=== PATIENT | female | born 1940 | race Caucasian/White ===

== ENCOUNTER → 2024-01-09 12:49 | Outpatient (REF) | payer OTHER, SELFPAY | LOC: RCS 12:49 | PROVIDERS: ATTENDING PHYSICIAN Internal Medicine Interventional Cardiology | DX: I10 Essential (primary) hypertension (principal) | CPT/HCPCS: 93306 ==

== ENCOUNTER 2024-01-22 06:12 | Day surgery (SDC) | payer OTHER, SELFPAY ==
[2024-01-22] VITALS (10 sets, daily range): BP systolic 155–178; BP diastolic 62–88; BMI 15.4
[2024-01-22 07:04] LABS: Hematocrit 36.7 % (37.0-47.0); Hemoglobin 12.6 g/dL (12.0-16.0); Mean Corp Hgb Conc. 34.3 g/dL (33.0-37.0); Mean Corpuscular Hgb 31.2 pg (27.0-31.0); Mean Corpuscular Volume 90.8 fL (81.0-99.0); Mean Platelet Volume 10.4 fL (7.4-10.4); Platelet Count 152 10^3/uL (130-400); Red Blood Cell Count 4.04 10^6/uL (4.20-5.40); Red Cell Dist. Width 12.5 % (11.5-14.5); White Blood Cell Count 6.7 10^3/uL (4.8-10.8)
[2024-01-22] MEDS: NSS 115 ML IV (07:33)
--- NOTE | 2024-01-22 08:05 | ITS.CL.CATH ---
[employer] - Catheterization
Cardiac Catheterization
Procedure Report:
LEFT HEART CATHETERIZATION
Date of Procedure: January 22, 2024
Referring: Tamia Benoit MD, [facility], [facility]
PROCEDURES:
1. Left catheterization, coronary angiogram.
2. Ultrasound-guided access
INDICATION: New LV dysfunction with LVEF of 35 to 40% with hypokinesis of mid-distal anteroseptum and anterior segments and akinesis of mid inferoseptum.
ACCESS: Right radial artery, 6 Kyrgyz sheath, under ultrasound guidance
HEMODYNAMICS : (mmHg)
AO (s/d) : 148/68
LV (s/d) : 143/7
LVEDP : 13
CORONARY FINDINGS
DOMINANCE: Right
LEFT MAIN: The left main artery is a large-caliber vessel which originates to the left circumflex artery, ramus intermedius branch and the left anterior descending artery. There is minimal luminal irregularities.
LEFT ANTERIOR DESCENDING: The left anterior descending artery is a medium caliber moderately tortuous vessel which gives rise to 1 major diagonal branch as it courses through the anterior interventricular groove and wraps around the apex. The LAD
proper has mild diffuse atherosclerotic plaque with diffuse disease in the mid portion of the diagonal up to 70%.
RAMUS INTERMEDIUS: The ramus intermedius branch is a medium caliber vessel with 50% ostial stenosis.
CIRCUMFLEX: The left circumflex artery is a small to medium caliber vessel which gives rise to 1 major obtuse marginal branch with minimal luminal irregularities.
RIGHT CORONARY ARTERY: The right coronary artery is a large-caliber, dominant vessel which gives rise to the right posterior descending artery and the right posterolateral system. There is mild diffuse atherosclerotic plaque.
SEDATION: 51 minutes of procedural sedation was utilized. An independent medical radiation dosimetrist was present to assist with and help manage the patient's level of consciousness and physiologic status.
RADIATION SUMMARY: Fluoro Time (min): 1.9, Dose (mGy): 76.13, DAP (Gy.cm2) : 5.55
Closure Device: Vascular band over right radial artery, 10 cc of air.
CONCLUSIONS
1. Mild to moderate coronary artery disease especially in branch vessels.
2. Normal LVEDP.
RECOMMENDATIONS
1. Optimization of goal-directed medical therapy for recently diagnosed cardiomyopathy.
2. Wean radial band per protocol.
3. Aggressive management of cardiovascular risk factors.
Tamia Benoit MD, FACC, [facility]
[2024-01-22 08:11] LABS: Blood Urea Nitrogen 10 mg/dl (7-17); Calcium 10.1 mg/dl (8.4-10.2); Carbon Dioxide 32 mmol/L (22-30); Chloride 97 mmol/L (98-107); Estimated Creatinine Clearance 38 ml/min; Glucose 107 mg/dl (70-99); Potassium 3.9 mmol/L (3.5-5.1); Sodium 136 mmol/L (135-145); eGFR > 60.00
[2024-01-22] MEDS: NSS 1000 IV (08:59)
== END 2024-01-22 12:30 | disposition home or self-care (01) ==
LOC: CATH 06:12
PROVIDERS: ATTENDING PHYSICIAN Internal Medicine Interventional Cardiology; FAMILY PHYSICIAN Internal Medicine
DX: I25.10 Atherosclerotic heart disease of native coronary artery without angina pectoris (principal); I44.7 Left bundle-branch block, unspecified; I10 Essential (primary) hypertension; E78.00 Pure hypercholesterolemia, unspecified; E03.9 Hypothyroidism, unspecified; Z79.82 Long term (current) use of aspirin; Z79.84 Long term (current) use of oral hypoglycemic drugs
CPT/HCPCS: 99152; 99153; C1894; 80048; 85027; 93005; 93458; Q9967

== ENCOUNTER → 2024-01-27 16:19 | Outpatient (REF) | payer OTHER, SELFPAY | LOC: RAD 16:19 | PROVIDERS: ATTENDING PHYSICIAN Nurse Practitioner; FAMILY PHYSICIAN Internal Medicine | DX: R22.31 Localized swelling, mass and lump, right upper limb (principal) | CPT/HCPCS: 93930 ==

== ENCOUNTER 2024-03-11 09:15 | Inpatient (IN) | payer OTHER, SELFPAY ==
--- NOTE | 2024-03-10 13:41 | PTCARENOTE ---
Dr Gomez made aware pt took Shaw this AM. No further action requested.
[2024-03-11] VITALS (19 sets, daily range): BP systolic 92–146; BP diastolic 55–96; BMI 15.4
[2024-03-11] MEDS: TYLENOL 650 MG PO ×2 (10:09→20:15)
[2024-03-11] MEDS: CELEBREX 200 MG PO (10:09)
[2024-03-11] MEDS: BACTROBAN NASAL 1 GRAM NASAL (10:09)
[2024-03-11 11:26] LABS: Glycohemoglobin (HgbA1c) 5.6 % (4.0-5.6)
[2024-03-11] MEDS: ROXICODONE 5 MG PO ×2 (14:04→22:20)
--- NOTE | 2024-03-11 14:14 | W.PN.ORTHO ---
Today's Communication / Plan
-
D/c when clinically stable.
Assessment
.
Dressing:
Clean, dry and intact.
Assessment:
Closed fracture of neck of R femur s/p Jimenez DANIELLE w/ Dr Gallardo 03/11/24
- Sustained after mechanical fall; will assess Vit D given fx
DVT prophylaxis - ASA, b/l venous foot pumps
HTN - + parameters - monitor BP
CAD, nonobstructive on cath 01/2024 - continue ASA but at 325 mg dosing x4 weeks for blood clot prevention
Ischemic cardiomyopathy, reduced EF - reduce hourly IVF rate to prevent fluid overload
Iron deficiency anemia - non-invasive hgb in AM
- Continue PO iron
HLD
LBBB
Mild valvular disease
MVP
OA s/p L TKA, 2007, and R TKA 2009
Hypothyroidism
L breast CA, 1999, s/p mastectomy/chemo/XRT
Melanoma
Anxiety
Depression
Plan
.
Surgery / Date: Jimenez sanchez/ Dr Gallardo 03/11/24
DVT Prophylaxis: Aspirin
Activity:
Out of bed.
PT/OT
Subjective
.
.:
Patient resting comfortably in PACU.
R hip pain minimal and well tolerated.
Denies any new significant complaints.
--- NOTE | 2024-03-11 16:50 | PTCARENOTE ---
Pt received from the PACU via bed. Transport was w/o incident. Pt is AAOx3, HRR, lungs are clear, resp. easy. VSS, Pt is afebrile. Pt with primaseal dressing to right hip w/ scant amt. of bloody drainage noted. Pt instructed on plan of care. Pt
verbalized understanding of instructions. Call yip is within reach.
[2024-03-11] MEDS: FEOSOL PO (17:00)
[2024-03-11] MEDS: FARXIGA PO (17:13)
[2024-03-11] MEDS: TYLENOL PO (17:14)
[2024-03-11] MEDS: ANCEF 5 IV (19:36)
[2024-03-11] MEDS: ASPIRIN 325 MG PO (19:37)
[2024-03-11] MEDS: BACTROBAN 2% OINTMENT 1 APPLIC NASAL (20:15)
[2024-03-11] MEDS: DECADRON 4 MG PO (20:15)
[2024-03-11] MEDS: COREG PO (20:16)
[2024-03-11] MEDS: SENOKOT 17.2 MG PO (20:18)
[2024-03-11] MEDS: COLACE 100 MG PO (20:18)
[2024-03-11] MEDS: LIPITOR 40 MG PO (22:19)
[2024-03-11] MEDS: DESYREL 50 MG PO (22:19)
[2024-03-11] MEDS: PEPCID 20 MG PO (22:19)
[2024-03-11] MEDS: REMERON 15 MG PO (22:19)
[2024-03-11] MEDS: ATIVAN 0.5 MG PO (22:58)
[2024-03-12] VITALS (7 sets, daily range): BP systolic 99–143; BP diastolic 58–73; PULSE 62–68; O2SAT 96; BMI 16.1
[2024-03-12] MEDS: TYLENOL PO ×2 (00:50→04:57)
[2024-03-12] MEDS: ANCEF 5 IV (02:35)
[2024-03-12 06:11] LABS: Hematocrit 24.4 % (37.0-47.0); Hemoglobin 8.4 g/dL (12.0-16.0)
[2024-03-12 06:48] LABS: Vitamin D, 25-OH*** 43.7 ng/mL (30-80)
[2024-03-12] MEDS: ROXICODONE 5 MG PO ×2 (08:25→13:07)
[2024-03-12] MEDS: ASPIRIN 325 MG PO (08:26)
[2024-03-12] MEDS: TYLENOL 650 MG PO ×4 (08:26→19:48)
[2024-03-12] MEDS: PAXIL 40 MG PO (08:26)
[2024-03-12] MEDS: SENOKOT 17.2 MG PO ×2 (08:26→19:45)
[2024-03-12] MEDS: DECADRON 4 MG PO ×2 (08:26→19:45)
[2024-03-12] MEDS: FARXIGA 10 MG PO (08:26)
[2024-03-12] MEDS: COLACE 100 MG PO ×2 (08:26→19:44)
[2024-03-12] MEDS: SYNTHROID 88 MCG PO (08:27)
[2024-03-12] MEDS: BACTROBAN 2% OINTMENT 1 APPLIC NASAL ×2 (08:27→19:44)
[2024-03-12] MEDS: COREG 12.5 MG PO ×2 (08:27→19:45)
[2024-03-12] MEDS: TORADOL 30 MG IV (10:12)
[2024-03-12] MEDS: LIDOCAINE 4% PATCH 2 PATCH TOPICAL (10:12)
--- NOTE | 2024-03-12 10:25 | CM ---
Met with pt at bedside
Pt reports she lives alone in an apartment; no steps to enter, elevator access
Prior to fall was independent, did own shopping, cleaning. Recently ambulating with rolling walker
DME - rolling walker, raised toilet seat
SNF - no past hx
HH - has had in past - unsure of agency
Son to transport home
PCP - [facility] - sees Laura
Pharm - [facility]
Pt reports she does not want to go to SNF - reports has had bad experience in past with son/. Prefers to go home with VN. Will not have transport for outpatient PT. No preference for VN if indicated
Does not have family support
PT/OT evals pending
Plan - anticipate home with VN vs SNF - pend evals from PT/OT
--- NOTE | 2024-03-12 10:30 | W.PN.ORTHO ---
Today's Communication / Plan
-
Await PT and OT recs. Pt hopeful for d/c home w/ home care.
D/c possible for later today if remaining clinically stable.
Assessment
.
Distal Motor Intact: Yes
Dressing:
Clean, dry and intact.
Assessment:
Closed fracture of neck of R femur s/p Jimenez sanchez/ Dr Gallardo 03/11/24
- Sustained after mechanical fall; Vit D WNL
DVT prophylaxis - ASA, b/l venous foot pumps
Post-surgical hip pain - will add Meloxicam, lidoderm patches
HTN - + parameters - BPs stabilized
CAD, nonobstructive on cath 01/2024 - continue ASA but at 325 mg dosing x4 weeks for blood clot prevention
Ischemic cardiomyopathy, reduced EF - reduced hourly IVF rate to prevent fluid overload
- No s/sx of acute HF
Iron deficiency anemia - hgb 12.6 pre-op -> 8.4 POD 1
- ? hemodilutional result given IVF overnight
- Pt notably asymptomatic, hemodynamically stable. Denies overt bleeding.
- Continue PO iron
- Trend H&H while inpatient
- Prefer not to transfuse unless <7, symptomatic given infection risk
HLD
LBBB
Mild valvular disease
MVP
OA s/p L TKA, 2007, and R TKA 2009
Hypothyroidism
L breast CA, 1999, s/p mastectomy/chemo/XRT
Melanoma
Anxiety
Depression
Plan
.
Surgery / Date: Jimenez sanchez/ Dr Gallardo 03/11/24
DVT Prophylaxis: Aspirin
Activity:
Out of bed.
PT/OT
Discharge Plan: Home w/ VN
Subjective
.
.:
Patient examined resting in bed.
Appears comfortable but reports 5/10 hip pain at rest.
Denies any other new significant complaints.
Vital Signs and Labs
.
Vital Signs and Labs:
Lab Results
03/12/24 04:34
Temp Pulse Resp BP Pulse Ox
97.9 F 66 16 125/59 96
03/12/24 07:05 03/12/24 08:27 03/12/24 07:05 03/12/24 08:27 03/12/24 08:00
Physical Exam
-
HEENT: No pallor, cyanosis, or jaundice. Throat clear.
NECK: Supple. No JVD.
RESPIRATORY: Lungs clear to auscultation.
CVS: S1, S2 normal. RRR.�
ABDOMEN: Soft, non-tender. No distension.
EXTREMITIES: Strength equal, no calf pain with palpation/dorsiflexion. Calves soft.
AGENCY SALES REPRESENTATIVE: AOx3. No focal deficits. triage technician grossly intact
--- NOTE | 2024-03-12 12:59 | W.PN.UPDATE ---
Update Note
Progress Note Update
Pt will greatly benefit from continued therapy while in house.
Given this, will hold on d/c today. Hopeful for d/c tomorrow.
[2024-03-12] MEDS: LIPITOR 40 MG PO (21:30)
[2024-03-12] MEDS: PEPCID 20 MG PO (21:31)
[2024-03-12] MEDS: REMERON 15 MG PO (21:31)
[2024-03-12] MEDS: DESYREL 50 MG PO (21:31)
[2024-03-12] MEDS: ATIVAN 0.5 MG PO (21:31)
[2024-03-13] MEDS: TYLENOL PO ×2 (00:10→04:41)
[2024-03-13 06:00] VITALS: BMI 15.6
[2024-03-13 06:23] LABS: Hematocrit 24.3 % (37.0-47.0); Hemoglobin 8.6 g/dL (12.0-16.0)
[2024-03-13 07:56] VITALS: BP 114/61
[2024-03-13] MEDS: SYNTHROID 88 MCG PO (08:12)
[2024-03-13] MEDS: PAXIL 40 MG PO (08:12)
[2024-03-13] MEDS: FARXIGA 10 MG PO (08:12)
[2024-03-13] MEDS: COREG 12.5 MG PO (08:12)
[2024-03-13] MEDS: MOBIC 7.5 MG PO (08:13)
[2024-03-13] MEDS: TYLENOL 650 MG PO ×2 (08:13→12:30)
[2024-03-13] MEDS: COLACE 100 MG PO (08:13)
[2024-03-13] MEDS: ASPIRIN 325 MG PO (08:13)
[2024-03-13] MEDS: DECADRON 4 MG PO (08:13)
[2024-03-13] MEDS: LIDOCAINE 4% PATCH 2 PATCH TOPICAL (08:14)
[2024-03-13] MEDS: SENOKOT 17.2 MG PO (08:14)
[2024-03-13] MEDS: ROXICODONE 5 MG PO ×2 (08:20→12:32)
--- NOTE | 2024-03-13 09:24 | W.PN.ORTHO ---
Today's Communication / Plan
-
Await further PT and OT recs.
D/c later today if remaining clinically stable.
Assessment
.
Dressing:
Scant incisional bleeding. Dressing otherwise C/D/I.
Assessment:
Closed fracture of neck of R femur s/p R SHASHI w/ Dr Gallardo 03/11/24
- Sustained after mechanical fall; Vit D WNL
DVT prophylaxis - ASA, b/l venous foot pumps
Post-surgical hip pain - added Meloxicam, lidoderm patches - pain better tolerated by POD 2
HTN - + parameters - BPs stabilized
CAD, nonobstructive on cath 01/2024 - continue ASA but at 325 mg dosing x4 weeks for blood clot prevention
Ischemic cardiomyopathy, reduced EF - reduced hourly IVF rate to prevent fluid overload
- No s/sx of acute HF. Daily weight stable.
Iron deficiency anemia - hgb 12.6 pre-op -> 8.4 -> 8.6 POD 2
- Pt notably asymptomatic, hemodynamically stable. Denies overt bleeding.
- Continue PO iron. Would advise daily iron if tolerated
- Prefer not to transfuse unless <7, symptomatic given infection risk
HLD
LBBB
Mild valvular disease
MVP
OA s/p L TKA, 2007, and R TKA 2009
Hypothyroidism
L breast CA, 1999, s/p mastectomy/chemo/XRT
Melanoma
Anxiety
Depression
Plan
.
Surgery / Date: Jimenez DANIELLE w/ Dr Gallardo 03/11/24
DVT Prophylaxis: Aspirin
Activity:
Out of bed.
PT/OT
Discharge Plan: Home w/ VN
Subjective
.
.:
Patient resting comfortably in her chair.
R hip pain 'better' w/ added Meloxicam, Lidoderm patches from yesterday.
Denies any new significant complaints.
Eager for potential d/c today.
Vital Signs and Labs
.
Vital Signs and Labs:
Lab Results
03/13/24 05:44
Temp Pulse Resp BP Pulse Ox
98.1 F 62 16 114/61 96
03/13/24 07:56 03/13/24 08:12 03/13/24 07:56 03/13/24 08:15 03/13/24 07:56
Physical Exam
-
HEENT: No pallor, cyanosis, or jaundice. Throat clear.
NECK: Supple. No JVD.
RESPIRATORY: Lungs clear to auscultation.
CVS: S1, S2 normal. RRR.�
ABDOMEN: Soft, non-tender. No distension.
EXTREMITIES: Strength equal, no calf pain with palpation/dorsiflexion. Calves soft.
LICENSED VETERINARY TECHNICIAN: AOx3. No focal deficits. police inspector grossly intact
[2024-03-13 09:42] VITALS: BP 135/58; BP 98/61; PULSE 72
--- NOTE | 2024-03-13 10:09 | W.DS.TRANS ---
DC Summary - Transit Clerk
-
Discharge Instructions:
Sleep Apnea Risk Low
Discharge Diagnosis/Procedures Closed fracture of neck of R femur s/p R SHASHI w/
Dr Gallardo 03/11/24
Diet Other diet
Additional Diets Diabetic carb controlled x1 week for wound
healing/infection prevention
Activity As tolerated,With Walker
Driving Restrictions Not until seen by your Dr
Bathing Restrictions OK to Shower
Other Services PT,VN
Wound Care Dressing to be removed 1 week post-surgery
Specialty Instructions Weigh Daily
Instructions:
Stand-Alone Forms: Total Hip/Knee Replacement D/C
Changes to Home Medications: Yes
Discharge Medications:
DC Medications w/original date entered in [facility]
levothyroxine 88 mcg tablet 88 mcg PO DAILY 10/12/20
lorazepam 0.5 mg tablet 0.5 mg PO HS 10/12/20
trazodone 50 mg tablet 50 mg PO HS 10/12/20
atorvastatin 40 mg tablet 40 mg PO DAILY 01/22/24
carvedilol 12.5 mg tablet 12.5 mg PO BID 01/22/24
mirtazapine 15 mg tablet 15 mg PO HS 01/22/24
ascorbic acid (vitamin C) 500 mg tablet (Vitamin C) 500 mg PO DAILY 03/10/24
biotin 10,000 mcg chewable tablet (Hair, Skin and Nails (biotin)) 10,000 mcg PO DAILY 03/10/24
dapagliflozin propanediol 10 mg tablet (Farxiga) 10 mg PO DAILY 03/10/24
paroxetine HCl 25 mg tablet,extended release 24 hr 50 mg PO DAILY 03/10/24
acetaminophen 500 mg tablet (Tylenol Extra Strength) 1,000 mg (2 x 500 mg) PO Q6H #30 tabs 03/12/24
aspirin 325 mg tablet 325 mg PO DAILY #30 tabs 03/12/24
dexamethasone 4 mg tablet 4 mg PO Q12H Anti-inflammatory #5 tabs 03/12/24
docusate sodium 100 mg capsule 100 mg PO BID #30 caps 10/31/24
famotidine 20 mg tablet 20 mg PO HS #30 tabs 03/12/24
hydralazine 10 mg tablet 10 mg PO DAILYPRN PRN BP OVER 140 #30 tabs 03/12/24
lidocaine 4 % topical patch 2 patch topical DAILY #30 ea 03/12/24
losartan 100 mg tablet 100 mg PO DAILY #1 tab 03/12/24
meloxicam 7.5 mg tablet 7.5 mg PO DAILY #14 tabs 03/12/24
ondansetron HCl 4 mg tablet 4 mg PO Q6H PRN nausea and vomiting #30 tabs 03/12/24
oxycodone 5 mg tablet 5 - 10 mg (1 - 2 x 5 mg) PO Q6H PRN moderate-severe pain #30 tabs 03/12/24
sennosides 8.6 mg tablet (Senna Laxative) 17.2 mg (2 x 8.6 mg) PO BID #30 tabs 03/12/24
spironolactone 25 mg tablet (Aldactone) 25 mg PO DAILY #90 tabs 03/12/24
ferrous sulfate 325 mg (65 mg iron) tablet (iron) 325 mg PO DAILY #1 tab 03/13/24
Home Medication Changes
acetaminophen 500 mg tablet (Tylenol Extra Strength) 1,000 mg (2 x 500 mg) PO Q6H #30 tabs 03/12/24
aspirin 325 mg tablet 325 mg PO DAILY #30 tabs 03/12/24
dexamethasone 4 mg tablet 4 mg PO Q12H Anti-inflammatory #5 tabs 03/12/24
docusate sodium 100 mg capsule 100 mg PO BID #30 caps 03/12/24
famotidine 20 mg tablet 20 mg PO HS #30 tabs 03/12/24
lidocaine 4 % topical patch 2 patch topical DAILY #30 ea 03/12/24
meloxicam 7.5 mg tablet 7.5 mg PO DAILY #14 tabs 03/12/24
ondansetron HCl 4 mg tablet 4 mg PO Q6H PRN nausea and vomiting #30 tabs 03/12/24
oxycodone 5 mg tablet 5 - 10 mg (1 - 2 x 5 mg) PO Q6H PRN moderate-severe pain #30 tabs 03/12/24
sennosides 8.6 mg tablet (Senna Laxative) 17.2 mg (2 x 8.6 mg) PO BID #30 tabs 03/12/24
ferrous sulfate 325 mg (65 mg iron) tablet (iron) 325 mg PO DAILY #1 tab 03/13/24
Pending Results: No
--- NOTE | 2024-03-13 10:58 | CM ---
Met with pt today
PT/OT recs - HH - discussed with pt - no preference
TT sent to [facility] for home services
Has ride home when discharged - son
Discussed IMM
Plan [facility]
--- NOTE | 2024-03-13 11:39 | VNURNOTE ---
Home Health Liaison met with patient at bedside to discuss [facility] nurse/therapy, visits, schedule and homebound status. Patient is agreeable and understands that visits at home will be 2-3 x per week to assess and teach medical management.
[facility] brochure provided with contact information. Patient is aware that [facility] will contact them for start of care in 1-2 days after discharge from .
[facility] referral completed in Care Port.
[2024-03-13 12:22] VITALS: BP 118/70; PULSE 62; O2SAT 99
[2024-03-13] MEDS: FEOSOL 325 MG PO (12:30)
[2024-03-13] MEDS: FLUAD (65 yr+) 2024-2025 FORMULA 0.5 ML IM (12:33)
== END 2024-03-13 14:47 | disposition home health service (06) | DRG 522 ==
LOC: 2 SOUTH 09:15
PROVIDERS: Physician Assistant; ADMITTING PHYSICIAN Orthopaedic Surgery
PROC: 0SR903Z Replacement of Right Hip Joint with Ceramic Synthetic Substitute, Open Approach (ICD-10-PCS; 2024-03-11)
DX: S72.001A Fracture of unspecified part of neck of right femur, initial encounter for closed fracture (principal); D62 Acute posthemorrhagic anemia; F32.A Depression, unspecified; E03.9 Hypothyroidism, unspecified; I10 Essential (primary) hypertension; D50.9 Iron deficiency anemia, unspecified; I08.1 Rheumatic disorders of both mitral and tricuspid valves; E78.5 Hyperlipidemia, unspecified; I44.7 Left bundle-branch block, unspecified; F41.9 Anxiety disorder, unspecified; I25.10 Atherosclerotic heart disease of native coronary artery without angina pectoris; I25.5 Ischemic cardiomyopathy; W19.XXXA Unspecified fall, initial encounter; Z79.82 Long term (current) use of aspirin; Z79.890 Hormone replacement therapy; Z79.899 Other long term (current) drug therapy; Z85.3 Personal history of malignant neoplasm of breast; Z85.820 Personal history of malignant melanoma of skin; Z96.653 Presence of artificial knee joint, bilateral; Z82.49 Family history of ischemic heart disease and other diseases of the circulatory system
CPT/HCPCS: 73502; 82306; 83036; 85014; 85018; 87070; 90662; 97110; 97162; 97167; 97530; 97535; C1713; C1776; G0008

== ENCOUNTER → 2024-07-07 14:52 | Outpatient (REF) | payer OTHER, SELFPAY | LOC: RCS 14:52 | PROVIDERS: ATTENDING PHYSICIAN Physician Assistant; FAMILY PHYSICIAN Internal Medicine | DX: I42.9 Cardiomyopathy, unspecified (principal) | CPT/HCPCS: 93306 ==

== ENCOUNTER 2024-08-06 16:24 | Emergency (ER) | payer OTHER, SELFPAY ==
[2024-08-06 16:27] VITALS: BP 175/92
[2024-08-06 17:34] VITALS: BMI 15.6
--- NOTE | 2024-08-06 17:45 | ED.GENMED ---
History of Present Illness
General
Chief Complaint: Fall
Source: patient and family
Exam Limitations: none
Time Seen by Provider: 08/06/24 17:19
Nursing documentation reviewed up to this point in time: agreed with
History of Present Illness
History of Present Illness:
Patient is an 84-year-old female presenting to the emergency department after mechanical fall tonight with head strike. Patient reports that she was walking in her driveway after finishing PT when she lost her footing and fell forward striking the
left side of her face on what she describes as a 'wooden block '. She also struck her left hip on the ground as well. Patient was able to get up and has been able to ambulate with some pain since. She denies any loss of consciousness.
Patient presents with pain around laceration on left cheek as well as mild pain in her left hip. Patient denies any neck or back pain. No numbness/tingling in lower extremities. No vomiting, double vision/blurry vision, dizziness/lightheadedness,
ataxia. She denies any chest pain, shortness of breath, or abdominal pain.
Of note�patient did have a right hip replacement a few months ago and states she has had somewhat difficult gait since. She denies any preceding chest pain, shortness of breath, lightheadedness/dizziness prior to fall today and states that there
was definitely a mechanical fall.
Patient is not on any blood thinners. She is unsure when her last tetanus shot was.
Past History
Past History
ED Past Medical History: HTN, Hypercholesterolemia, Hypothyroidism, Psychiatric (a/d) and Other (anemia)
Social History
Tobacco: Non-smoker
Living: alone
Review of Systems
Review of Systems
Allergies reviewed?: Yes
All Other Systems: ROS reviewed and negative except as documented in HPI and ROS
Phy Exam
Physical Exam
Physical Exam:
GENERAL: No acute distress
HEENT: Approximately 2 cm laceration on the left lateral zygoma with surrounding abrasion, extraocular muscles intact, sclera clear bilaterally, no signs of entrapment, dentition intact, no tenderness at TMJ, no trismus no other obvious trauma
NECK: no midline tenderness, normal range of motion, no other obvious trauma
BACK: no midline tenderness, no other obvious trauma,
CHEST: no tenderness, no flail segment, no subcutaneous emphysema, no other obvious trauma
LUNGS: clear to auscultation bilaterally
CARDIOVASCULAR: regular rate and rhythm
ABDOMEN: soft, non-tender, no other obvious trauma
PELVIS: stable, no obvious injury
EXTREMITIES: Hematoma to left hip with excellent range of motion of the left hip both with internal/external rotation with very minimal discomfort. No pain in left knee or left ankle with excellent range of motion. RLE, RUE, and LUE atraumatic and
nontender with full range of motion, distal pulses intact, sensation in bilateral lower extremities intact
NEUROLOGIC: awake, alert x 3, no focal deficits
Course
Orders/Labs/Results
Orders:
Orders
08/06/24 17:31
Cervical Spine wo Contrast CT [CT Cervical Spine W/o Iv Contr] Urgent
Comment:
Reason For Exam: fall
Facial Bones wo Contrast CT [CT Facial Bones W/o Iv Contras] Urgent
Comment:
Reason For Exam: fall
Acetaminophen [Tylenol] 650 mg PO NOW STA
08/06/24 17:32
CT Head W/o Iv Contrast Urgent
Comment:
Reason For Exam: fall
08/06/24 17:34
Tetanus/Diphth/Acelpertussis [Adacel] 0.5 ml IM .ONCE ONE
08/06/24 18:28
Hip, Left 2-3 Views [CR Hip - LT w/wo Pel 2-3 Vw*] Urgent
Comment:
Reason For Exam: fall, left hip pain and contusion
Include a pelvis x-ray?: Yes
08/06/24 20:21
CT Pelvis W/o Iv Contrast Urgent
Comment:
Reason For Exam: trauma, fall onto left hip
Vital Signs
Initial and Last Documented VS:
Initial Vital Signs
Temp Pulse Resp BP Pulse Ox
98.4 F 77 18 175/92 97
08/06/24 16:27 08/06/24 16:27 08/06/24 16:27 08/06/24 16:27 08/06/24 16:27
Last Documented Vital Signs
Temp Pulse Resp BP Pulse Ox
98.4 F 77 18 175/92 97
08/06/24 16:27 08/06/24 16:27 08/06/24 16:27 08/06/24 16:27 08/06/24 16:27
Procedures
Laceration Closure
Left Cheek:
Status of Wound: clean
Size of Wound in cm: 2
Description of Wound Edges: surrounded by abrasion
Preparation: cleaned with saline
Anesthesia: 1% Lidocaine with epi
Revision/Debridement: routine- no revision
Skin Closure Material: 6-0 nylon
Number of sutures: 3
MDM/Problems Addressed
Differential Diagnosis Includes:
Not limited to: Laceration, hematoma, hip fracture, concussion, intracerebral hemorrhage, facial bone fracture, etc.
MDM/Problems Addressed:
84 y.o F presents with laceration to left cheek after mechanical fall and associated head strike. Also with hematoma to left hip. No LOC. Hypertensive, otherwise with stable vital signs. Physical exam as above. Patient arrives A&O x 3 with no focal
neurologic deficits on exam. She does have laceration to left lateral zygoma which will require primary closure. Hematoma to left hip noted otherwise no evidence of other traumatic injuries. Patient not anticoagulated. Will update tetanus and close
laceration. Will obtain imaging to r/o traumatic injuries. Fall does seem to have been mechanical in nature without concern for syncope.
Verbal consent obtained by patient. Wound anesthetized with 1% lido w/ epi and closed with 3 6-0 nylon sutures with excellent approximation of wound edges. Hemostasis obtained although there is surrounding abrasion. Patient tolerated procedure
well. Wound care instructions along with suture removal discussed with patient.
Update: CT head, facial bones, and c-spine without acute traumatic injuries. Multiple incidental findings noted and discussed with patient. She denies any infectious symptoms, cough, or abdominal pain. Patient was provided copies of imaging reports
to f/u with PCP. Ultimately CT of pelvis was obtained secondary to abnormality noted on hip xray - although no evidence of hip fracture on CT. Reassessed hematoma which appears stable in size/appearance and do not feel is rapidly expanding.
Admission to hospital was offered to patient given mild instability on feet s/p recent hip surgery although patient declines and states she is adamant about going home. Patient was able to ambulate w/ walker and bear weight here in ED. Patient will
be discharged home at this point with close return precautions and primary care f/u.
Chronic conditions affecting care:
Hypertension
Acute Exacerbation and/or Progression of Chronic Illness:
Acutely hypertensive
*Radiology
Radiology exam reviewed: preliminary read by ED provider (xray of left hip reviewed by me - no acute fracture) and radiology read reviewed
*Pulse Oximetry
Patient hypoxic: no
*EKG
Interpreted by ED Provider?: NA
*Wrapping Machine Tender Interpretation
Rate: Wrapping Machine Tender- N/A
*Critical Care Note
Total Time (30-74mins, 75-104mins- exclusive of procedures): Not Applicable
ED Attending Note
-
Portions of this chart may have been created with voice recognition software.� Occasional wrong word or��sound alike� substitutions may have occurred due to the inherent limitations of voice recognition software.
Discharge Plan
Departure
Patient Disposition: Home (Routine Discharge)
Date of Disposition: 08/06/24
Time of Disposition: 21:20
Patient with high blood pressure during this ER visit?: Yes
Covid-19: Not Applicable
Discharge Problem:
Fall, Laceration of cheek, right, Hematoma of left hip
Instructions: Wound Care (DC), Head Injury in Adults (DC), Laceration Repair With Stitches (DC), Preventing falls in adults, BLOOD PRESSURE
Prescriptions:
No Action
trazodone 50 MG tablet
50 mg PO HS
levothyroxine 88 MCG tablet
88 mcg PO DAILY
lorazepam 0.5 MG tablet
0.5 mg PO HS
atorvastatin 40 mg Tablet
40 mg PO DAILY
mirtazapine 15 mg Tablet
15 mg PO HS
carvedilol 12.5 mg Tablet
12.5 mg PO BID
paroxetine HCl 25 mg Tablet Extended Release 24 Hr
50 mg PO DAILY
dapagliflozin propanediol [Farxiga] 10 mg Tablet
10 mg PO DAILY
ascorbic acid (vitamin C) [Vitamin C] 500 mg Tablet
500 mg PO DAILY
Hair, Skin and Nails (biotin) 10,000 mcg Tablet,Chewable
10,000 mcg PO DAILY
aspirin 325 mg Tablet
325 mg PO DAILY Qty: 30 0RF
Rx Instructions:
Take daily x4 weeks for blood clot prevention; then resume Aspirin 81 mg daily.
docusate sodium 100 mg Capsule
100 mg PO BID Qty: 30 0RF
dexamethasone 4 mg Tablet
4 mg PO Q12H Qty: 5 0RF
Rx Instructions:
Restart night of discharge. Continue every 12 hours until finished.
Take with food.
lidocaine 4 % Adhesive Patch,Medicated
2 patch topical DAILY Qty: 30 0RF
Rx Instructions:
Over the counter. 12 hours on, 12 hours off.
Apply to sides of right hip/thigh.
hydralazine 10 mg Tablet
10 mg PO DAILYPRN PRN (Reason: BP OVER 140) Qty: 30 0RF
spironolactone [Aldactone] 25 mg tablet
25 mg PO DAILY Qty: 90 5RF
Rx Instructions:
HOLD IF systolic blood pressure <130 while on Oxycodone.
famotidine 20 mg Tablet
20 mg PO HS Qty: 30 0RF
Rx Instructions:
Take nightly while on post-surgical pain meds to reduce GI upset
sennosides [Senna Laxative] 8.6 mg Tablet
17.2 mg PO BID Qty: 30 0RF
ondansetron HCl 4 mg tablet
4 mg PO Q6H PRN (Reason: nausea and vomiting) Qty: 30 0RF
acetaminophen [Tylenol Extra Strength] 500 mg tablet
1,000 mg PO Q6H Qty: 30 0RF
Rx Instructions:
DO NOT exceed >4000 mg daily.
oxycodone 5 mg tablet
5 - 10 mg PO Q6H PRN (Reason: moderate-severe pain) Qty: 30 0RF
Rx Instructions:
1 tab for moderate pain, 2 if severe.
Dx total joint.
meloxicam 7.5 mg tablet
7.5 mg PO DAILY Qty: 14 0RF
Rx Instructions:
Take with food.
DO NOT take within 2 hours of Aspirin.
losartan 100 mg Tablet
100 mg PO DAILY Qty: 1 0RF
Rx Instructions:
HOLD IF systolic blood pressure <130 while on Oxycodone.
ferrous sulfate [iron] 325 mg (65 mg iron) Tablet
325 mg PO DAILY Qty: 1 0RF
Rx Instructions:
Increase to daily dosing if tolerated given recent anemia.
Referrals:
Laura Hastings CRNP [Family Provider] - Follow up in 5-7 days
Activity Restrictions/Additional Instructions:
Return to the emergency department with any severe headache or neck pain, confusion, lightheadedness/dizziness, vomiting, rapidly expanding hematoma, numbness/tingling to left lower extremity, any signs of infection, or other concerns
-As discussed�your laceration was closed with 3 stitches today. It is important you keep wound clean and dry. The stitches will need to be removed in 5 to 7 days. This can be done at your primary care office or urgent care. Monitor closely for
signs of infection.
-Continue to ice hematoma on your left hip for the remainder of tonight and tomorrow. Hematoma begins to rapidly expand or if you have any numbness/tingling please return immediately to emergency department.
-You can take Tylenol and/or Motrin as needed for pain.
-You should follow with your primary care within the week to ensure symptoms are improving/for further evaluation. As discussed�please review incidental findings on imaging reports that were provided to you with primary care to ensure proper
follow-up
Monitor your symptoms closely and return to the emergency department with any acute worsening/new symptoms or any other concerns
Interventions
Interventions:
*Risk Screen - Suicide Last Done: 08/06/24 16:27
*General Assessment Last Done: 08/06/24 16:27
*Neglect/Abuse Screening Last Done: 08/06/24 16:27
*ED COVID-19 Vaccine History Last Done: 08/06/24 16:27
*Nursing Disposition Last Done: 08/06/24 21:44
ED-Musculoskeletal Assessment Last Done: 08/06/24 17:34
ED- Neurological Assessment Last Done: 08/06/24 17:34
ED-Skin Assessment Last Done: 08/06/24 17:34
Discharge Date and Time
Discharge Date/Time: 08/06/24 21:44
Print Language: MALDIVIAN
[2024-08-06] MEDS: ADACEL 0.5 ML IM (17:56)
[2024-08-06] MEDS: TYLENOL 650 MG PO (17:57)
== END 2024-08-06 21:44 | disposition home or self-care (01) ==
LOC: EMR 16:24
PROVIDERS: EMERGENCY PHYSICIAN Emergency Medicine; FAMILY PHYSICIAN Nurse Practitioner
DX: S01.412A Laceration without foreign body of left cheek and temporomandibular area, initial encounter (principal); S70.02XA Contusion of left hip, initial encounter; W01.0XXA Fall on same level from slipping, tripping and stumbling without subsequent striking against object, initial encounter; E78.00 Pure hypercholesterolemia, unspecified; I10 Essential (primary) hypertension; E03.9 Hypothyroidism, unspecified; Z96.641 Presence of right artificial hip joint; Z23 Encounter for immunization
CPT/HCPCS: 12011; 90471; 99284; 70450; 70486; 72125; 72192; 73502; 90715

== ENCOUNTER → 2025-01-30 13:17 | Outpatient (REF) | payer OTHER, SELFPAY | LOC: PAVMRI 13:17 | PROVIDERS: ATTENDING PHYSICIAN Orthopaedic Surgery | DX: M25.559 Pain in unspecified hip (principal); M25.551 Pain in right hip; Z96.641 Presence of right artificial hip joint | CPT/HCPCS: 73721 ==

== ENCOUNTER → 2025-02-02 12:03 | Outpatient (REF) | payer OTHER, SELFPAY | LOC: RAD 12:03 | PROVIDERS: ATTENDING PHYSICIAN Nurse Practitioner | DX: R93.89 Abnormal findings on diagnostic imaging of other specified body structures (principal) | CPT/HCPCS: 71046 ==